=== PATIENT | male | born 1935 | race Caucasian/White ===

== ENCOUNTER 2017-06-17 10:26 | Inpatient (IN) | payer OTHER ==
[~2017-06-17] VITALS: Ht 167.6 cm; Wt 74.0 kg
[2017-06-17 10:28] VITALS: BP 188/86; PULSE 86; RESP 18; TEMP 98.3; O2SAT 96
--- NOTE | 2017-06-17 11:01 | PD ---
HPI Chief Complaint: Complaint Time Seen by Provider: 10:36 Travel History International Travel<30 days: Yes Contact w/Intl Traveler<30days: [place] Traveled to: [place] Traveled to known affect area: No History of Present Illness HPI 81yo M with PMH of enlarged prostate presents to the ED with c/o urinary retention since 4am yesterday. Said he has not been able to urinate. Denies any fever, chest pain, sob, n/v, abdominal pain, focal weakness or numbness or trauma. PFSH Past Medical History Diminished Hearing: No Genitourinary: Yes (ENLARGED PROSTATE) Past Surgical History Surgical History: No Previous Surgery Social History Alcohol Use: Yes (OCCASIONALLY) Tobacco Use: No Substance Use: No Allergies-Medications (Allergen,Severity, Reaction): Coded Allergies: No Known Allergies (Unverified , 06/17/17) Review of Systems Except as stated in HPI: all other systems reviewed are Neg Physical Exam Narrative GENERAL: 81yo M in mild distress. SKIN: Focused skin assessment warm/dry. HEAD: Atraumatic. Normocephalic. CARDIOVASCULAR: Regular rate and rhythm. No murmur appreciated. RESPIRATORY: No accessory muscle use. Clear to auscultation. Breath sounds equal bilaterally. GASTROINTESTINAL: Abdomen soft, distended. Mild suprapubic ttp. No rebound tenderness or guarding. BACK: No CVA tenderness bilaterally. MUSCULOSKELETAL: No obvious deformities. No clubbing. No cyanosis. No edema. NEUROLOGICAL: Awake and alert. No obvious cranial nerve deficits. Motor grossly within normal limits. Normal speech. PSYCHIATRIC: Appropriate mood and affect; insight and judgment normal. Data Data Last Documented VS Vital Signs Date Time Temp Pulse Resp B/P (MAP) Pulse Ox O2 Delivery O2 Flow Rate FiO2 06/17/17 10:28 98.3 86 18 188/86 (120) 96 Room Air Orders Orders Urinary Catheter Insert/Apply (06/17/17 10:45) Urinalysis - C+S If Indicated (06/17/17 10:45) Basic Metabolic Panel (Bmp) (06/17/17 10:45) Admit Order (Ed Use Only) (06/17/17 14:01) Labs Laboratory Tests Test 06/17/17 11:50 Urine Color LIGHT-YELLOW Urine Turbidity CLEAR Urine pH 6.5 Urine Specific [place] 1.009 Urine Protein NEG mg/dL Urine Glucose (UA) NEG mg/dL Urine Ketones NEG mg/dL Urine Occult Blood SMALL Urine Nitrite NEG Urine Bilirubin NEG Urine Urobilinogen LESS THAN 2.0 MG/DL Urine Leukocyte Esterase NEG Urine RBC 6 /hpf Urine WBC 3 /hpf Urine Bacteria RARE /hpf Microscopic Urinalysis Comment CULT NOT INDICATED Blood Urea Nitrogen 41 MG/DL Creatinine 4.50 MG/DL Random Glucose 112 MG/DL Calcium Level 9.3 MG/DL Sodium Level 136 MEQ/L Potassium Level 4.4 MEQ/L Chloride Level 100 MEQ/L Carbon Dioxide Level 26.8 MEQ/L Anion Gap 9 MEQ/L Estimat Glomerular Filtration Rate 13 ML/MIN MDM Medical Decision Making Medical Screen Exam Complete: Yes Emergency Medical Condition: Yes Differential Diagnosis KADE vs. UTI vs. urinary retention Narrative Course 81yo M with urinary retention since 4am yesterday. Pt states that he does have an enlarged prostate but this has not happened before. BUN/creatinine elevated at 41/4.50. Pt is from [place] and do not have prior to compare. He said that he had blood work in 12/2016 and his kidney functions were normal. UA showed 3 WBC, culture not indicated. Pt had suprapubic abdominal distension prior to cisneros insertion. Pt feels much better after cisneros insertion and abdomen is soft nontender now. Even though KADE likely secondary obstruction, will admit for full work up. Diagnosis Primary Impression: KADE (acute kidney injury) Admitting Information Admitting Physician Requests: Misty Panchal DO Jun 17, 2017 11:01
[2017-06-17 12:05] LABS: BACTERIA, URINE RARE /hpf; BLOOD, URINE SMALL (NEG); COMMENT (UR) CULT NOT INDICATED; CULTURE IF INDICATED CULT NOT INDICATED; GLUCOSE,URINE NEG (NEG); KETONE, URINE NEG (NEG); NITRITE,URINE NEG (NEG); PH, URINE 6.5 (5.0-8.5); URINE COLOR LIGHT-YELLOW (YELLW/STRAW)
[2017-06-17 12:20] LABS: BICARBONATE 26.8 MEQ/L (21.0-32.0); POTASSIUM 4.4 MEQ/L (3.5-5.1)
--- NOTE | 2017-06-17 13:53 | HHI.HP ---
HPI Service Family Medicine Primary Care Physician No Primary Care Physician Admission Diagnosis Diagnoses: International Travel<30 Days: Yes Contact w/Intl Traveler<30days: [place] Traveled to: [place] Known Affected Area: No History of Present Illness 81yo M with PMH of enlarged prostate (s/p high PSA and close follow-up with urologist in [place]) presents to the ED with c/o urinary retention since 4am yesterday. This has never happened to him before. He woke up at 4AM yesterday and a little dribbled out but then he couldn't urinate after. He continued to feel progressively more bloated and "full" until he felt he had to come into the ER today. He never felt any abdominal pain. He never saw any blood in his urine or had pain with urination. He has never needed any medications for his BPH. He denies fever/chills. Denies SOB/CP/dizzyness. Since arriving to the ED he had a cisneros placed and now he feels "great, back to normal". (Daphne Romo MD R2) Review of Systems Constitutional: DENIES: Diaphoretic episodes, Fatigue Endocrine: DENIES: Polydipsia, Polyuria Eyes: DENIES: Diplopia Ears, nose, mouth, throat: DENIES: Hearing loss, Vertigo Respiratory: DENIES: Snoring, Wheezing Cardiovascular: DENIES: Palpitations, Syncope Gastrointestinal: DENIES: Bloody stools, Constipation Genitourinary: DENIES: Testicular Pain, Testicular Swelling Musculoskeletal: DENIES: Muscle aches, Stiffness Hematologic/lymphatic: DENIES: Bruising Immunologic/allergic: DENIES: Eczema Neurologic: DENIES: Headache, Localized weakness Psychiatric: DENIES: Confusion, Mood changes (Daphne Romo MD R2) Past Family Social History Past Medical History chronic back pain - oseteoperosis and arthritis hypertension - on Valsartan 80, Hydrochlorothiazide 12.5 combo drug Past Surgical History cholecystectomy in the Reported Medications sandoz valsartan hct plaq 80-12.5 calcium & vit.D (Daphne Romo MD R2) Allergies: Coded Allergies: No Known Allergies (Unverified , 06/17/17) Family History non-contributory Social History denies smoking, denies alcohol, denies other drug use (Daphne Romo MD R2) Physical Exam Vital Signs Vital Signs Date Time Temp Pulse Resp B/P (MAP) Pulse Ox O2 Delivery O2 Flow Rate FiO2 06/17/17 10:28 98.3 86 18 188/86 (120) 96 Room Air Physical Exam GENERAL: This is a well-nourished, well-developed patient, in no apparent distress, very chatty and in good spirits SKIN: No rashes, ecchymoses or lesions. Cool and dry. HEAD: Atraumatic. Normocephalic. No temporal or scalp tenderness. EYES: Pupils equal round and reactive. Extraocular motions intact. No scleral icterus. No injection or drainage. ENT: Nose without bleeding, purulent drainage or septal hematoma. Throat without erythema, tonsillar hypertrophy or exudate. Uvula midline. Airway patent. NECK: Trachea midline. No JVD or lymphadenopathy. Supple, nontender, no meningeal signs. CARDIOVASCULAR: Regular rate and rhythm without murmurs, gallops, or rubs. RESPIRATORY: Clear to auscultation. Breath sounds equal bilaterally. No wheezes , rales, or rhonchi. GASTROINTESTINAL: Abdomen soft, non-tender in abdomen or suprapubic area, mildly distended abdomen. No hepato-splenomegaly, or palpable masses. No guarding. MUSCULOSKELETAL: Extremities without clubbing, cyanosis, or edema. No joint tenderness, effusion, or edema noted. No calf tenderness. Negative Homans sign bilaterally. NEUROLOGICAL: Awake and alert. Cranial nerves II through XII intact. Motor and sensory grossly within normal limits. Five out of 5 muscle strength in all muscle groups. Normal speech. Laboratory Laboratory Tests Test 06/17/17 11:50 Urine Color LIGHT-YELLOW Urine Turbidity CLEAR Urine pH 6.5 Urine Specific [place] 1.009 Urine Protein NEG Urine Glucose (UA) NEG Urine Ketones NEG Urine Occult Blood SMALL Urine Nitrite NEG Urine Bilirubin NEG Urine Urobilinogen LESS THAN 2.0 Urine Leukocyte Esterase NEG Urine RBC 6 Urine WBC 3 Urine Bacteria RARE Microscopic Urinalysis Comment CULT NOT INDICATED Blood Urea Nitrogen 41 Creatinine 4.50 Random Glucose 112 Calcium Level 9.3 Sodium Level 136 Potassium Level 4.4 Chloride Level 100 Carbon Dioxide Level 26.8 Anion Gap 9 Estimat Glomerular Filtration Rate 13 (Daphne Romo MD R2) Result Diagram: 06/17/17 1150 Caprini VTE Risk Assessment Caprini VTE Risk Assessment: No/Low Risk (score <= 1) Caprini Risk Assessment Model Point Value = 1 Point Value = 2 Point Value = 3 Point Value = 5 Age 41-60 Minor surgery BMI > 25 kg/m2 Swollen legs Varicose veins or History of unexplained or recurrent spontaneous Oral contraceptives or hormone replacement Sepsis (< 1 month) Serious lung disease, including pneumonia (< 1 month) Abnormal pulmonary function Acute myocardial infarction Congestive heart failure (< 1 month) History of inflammatory bowel disease Medical patient at bed rest Age 61-74 Arthroscopic surgery Major open surgery (> 45 min) Laparoscopic surgery (> 45 min) Malignancy Confined to bed (> 72 hours) Immobilizing plaster cast Central venous access Age >= 75 History of VTE Family history of VTE Factor V Leiden Prothrombin [id number] Lupus anticoagulant Anticardiolipin antibodies Elevated serum homocysteine Heparin-induced thrombocytopenia Other congenital or acquired thrombophilia Stroke (< 1 month) Elective arthroplasty Hip, pelvis, or leg fracture Acute spinal cord injury (< 1 month) Prophylaxis Regimen Total Risk Factor Score Risk Level Prophylaxis Regimen 0-1 Low Early ambulation 2 Moderate Order ONE of the following: *Sequential Compression Device (SCD) *Heparin 5000 units SQ BID 3-4 Higher Order ONE of the following medications: *Heparin 5000 units SQ TID *Enoxaparin/Lovenox 40 mg SQ daily (WT < 150 kg, CrCl > 30 mL/min) *Enoxaparin/Lovenox 30 mg SQ daily (WT < 150 kg, CrCl > 10-29 mL/min) *Enoxaparin/Lovenox 30 mg SQ BID (WT < 150 kg, CrCl > 30 mL/min) AND/OR *Sequential Compression Device (SCD) 5 or more Highest Order ONE of the following medications: *Heparin 5000 units SQ TID (Preferred with Epidurals) *Enoxaparin/Lovenox 40 mg SQ daily (WT < 150 kg, CrCl > 30 mL/min) *Enoxaparin/Lovenox 30 mg SQ daily (WT < 150 kg, CrCl > 10-29 mL/min) *Enoxaparin/Lovenox 30 mg SQ BID (WT < 150 kg, CrCl > 30 mL/min) AND *Sequential Compression Device (SCD) (Daphne Romo MD R2) Assessment and Plan Assessment and Plan 81 y/o M with hx of BPH, presents with post-obstructive KADE. Code Status Full Code Discussed Condition With (Daphne Romo MD R2) Attending Attestation THIS CASE WAS DISCUSSED WITH THE RESIDENT PHYSICIAN. I HAVE REVIEWED THE RECORD AND AGREE WITH THE ABOVE NOTE AND PLAN OF CARE WAS DISCUSSED. I HAVE AUTHORIZED THE ORDER FOR PLACEMENT IN OUT-PATIENT OBSERVATION STATUS. (Peewee Davis MD) Problem List: (1) KADE (acute kidney injury) ICD Codes: N17.9 - Acute kidney failure, unspecified Status: Acute Plan: BUN/Cr: 41/4.50 Due to post-obstructive uropathy f/u BMP in AM Per pt baseline Creat in December was WNL (2) BPH w urinary obs/LUTS ICD Codes: N40.1 - Benign prostatic hyperplasia with lower urinary tract symptoms; N13.8 - Other obstructive and reflux uropathy Status: Acute Plan: Hx of BPH with no sx, no medical management Cisneros placed: 2L out Encourage large PO fluid intake d/c cisneros in AM for void trial f/u BMP in AM consult urology: likely will need to d/c with cisneros Start Tamsulosin .4mg PO daily (can increase as outpatient in 2-4wks) (3) Hypertension ICD Codes: I10 - Essential (primary) hypertension Status: Chronic Plan: Continue home medication : valsartan + hydrochlorothiazide (4) fen/ppx Status: Chronic Plan: fluids: heavy PO fluid intake electrolytes: WNL, f/u BMP in AM nutrition: regular diet dvtppx: hold lovenox for creatinine clearance (Daphne Romo MD R2) Physician Certification 2 Midnight Certification Type: Admission for Inpatient Services Order for Inpatient Services The services are ordered in accordance with Medicare regulations or non- Medicare payer requirements, as applicable. In the case of services not specified as inpatient-only, they are appropriately provided as inpatient services in accordance with the 2-midnight benchmark. Estimated LOS (days): 2 days is the estimated time the patient will need to remain in the hospital, assuming treatment plan goals are met and no additional complications. Post-Hospital Plan: Home (Daphne Romo MD R2) Problem Qualifiers (1) Hypertension: Qualified Codes: I10 - Essential (primary) hypertension Daphne Romo MD R2 Jun 17, 2017 13:53 Peewee Davis MD Jun 17, 2017 15:27
[2017-06-17] MEDS ORDERED: NALOXONE HCL 0.4 MG/ML AMP IV PUSH PRN (14:15)
[2017-06-17] MEDS ORDERED: SODIUM CHLORIDE 0.9% FLUSH 10 ML FLUSH IV FLUSH PRN (14:15)
[2017-06-17] MEDS ORDERED: SENNOSIDES 8.6 MG TAB PO PRN (14:15)
[2017-06-17] MEDS ORDERED: ONDANSETRON HCL 4 MG/2 ML VIAL IVP PRN (14:15)
[2017-06-17] MEDS ORDERED: ACETAMINOPHEN 325 MG TAB PO PRN (14:15)
[2017-06-17] MEDS ORDERED: TEMAZEPAM 15 MG CAP PO PRN (14:15)
[2017-06-17] MEDS ORDERED: BISACODYL 10 MG SUPP RECTAL PRN (14:15)
[2017-06-17] MEDS ORDERED: ENOXAPARIN SODIUM 40 MG/0.4 ML SYRINGE SQ SCH (14:15)
[2017-06-17] MEDS ORDERED: MAGNESIUM HYDROXIDE SUSP 30 ML CUP PO PRN (14:15)
[2017-06-17] MEDS ORDERED: LACTULOSE SYRUP 20 GM/30 ML CUP PO PRN (14:15)
[2017-06-17] MEDS ORDERED: TAMSULOSIN HCL 0.4 MG CAP PO ONE (15:00)
[2017-06-17 15:18] VITALS: BP 139/71; PULSE 79; RESP 16; O2SAT 98
--- NOTE | 2017-06-17 15:27 | HHI.HP ---
HPI Service Family Medicine Primary Care Physician No Primary Care Physician Admission Diagnosis Diagnoses: (1) KADE (acute kidney injury) (2) BPH w urinary obs/LUTS (3) Hypertension (4) fen/ppx International Travel<30 Days: Yes Contact w/Intl Traveler<30days: [place] Traveled to: [place] Known Affected Area: No History of Present Illness 81-year-old male presenting to the emergency department with abdominal pain and urinary retention. He is from [place] and is currently an [place] on vacation until 06/27/17 and is noted to have urinary retention with his last void prior to arrival in the emergency department at 4 AM the day prior to arrival. He states with his last urination, he noticed a very weak stream with "dribbling" and had inability to urinate after this. He continued to feel progressively more bloated and full in his lower abdomen until he came to the ER today with lower abdominal pain and lower back pain. He denies fevers or chills, denies any nausea or vomiting, denies any hematuria or melena or hematochezia. Upon admission to the emergency department, a Valdez catheter was placed and 1600 mL of clear urine was immediately drained. He has a history of BPH that he states has been worked up significantly in [place]. He states that he has had a prostate ultrasound and biopsy set of all returned normal. He also states that he has had a prostate MRI that did not show any evidence of prostate cancer. His primary doctor in [place] has recommended he be on a prostate medication such as Flomax, however he has refused this due to the fact that he has been able to urinate on a relatively normal basis without pain or issues prior to this episode. Review of Systems Constitutional: DENIES: Fever, Chills, Dizziness Endocrine: DENIES: Polyuria Respiratory: DENIES: Apneas, Cough Cardiovascular: DENIES: Chest pain, Palpitations, Syncope, Dyspnea on Exertion Gastrointestinal: COMPLAINS OF: Abdominal pain, DENIES: Black stools, Bloody stools, Constipation, Diarrhea, Nausea, Vomiting, Difficulty Swallowing Genitourinary: DENIES: Urinary frequency, Urinary incontinence, Urgency, Hematuria, Dysuria, Nocturia Musculoskeletal: DENIES: Joint pain Past Family Social History Past Medical History chronic back pain - oseteoperosis and arthritis hypertension - on Valsartan 80, Hydrochlorothiazide 12.5 combo drug Past Surgical History cholecystectomy in the 1990s Allergies: Coded Allergies: No Known Allergies (Unverified , 06/17/17) Family History non-contributory Social History denies smoking, denies alcohol, denies other drug use Physical Exam Vital Signs Vital Signs Date Time Temp Pulse Resp B/P (MAP) Pulse Ox O2 Delivery O2 Flow Rate FiO2 06/17/17 10:28 98.3 86 18 188/86 (120) 96 Room Air Physical Exam GENERAL: This is a well-nourished, well-developed patient, in no obvious distress SKIN: No rashes, ecchymoses or lesions. Cool and dry. NECK: Trachea midline. No JVD or lymphadenopathy. Supple, nontender, no meningeal signs. CARDIOVASCULAR: Regular rate and rhythm without murmurs, gallops, or rubs. RESPIRATORY: Clear to auscultation. Breath sounds equal bilaterally. No wheezes , rales, or rhonchi. GASTROINTESTINAL: Abdomen soft, nontender to palpation. No suprapubic pain or tenderness. : Valdez catheter in place with blood-tinged urine MUSCULOSKELETAL: Extremities without clubbing, cyanosis, or edema. NEUROLOGICAL: Awake and alert. Laboratory Laboratory Tests Test 06/17/17 11:50 Urine Color LIGHT-YELLOW Urine Turbidity CLEAR Urine pH 6.5 Urine Specific [place] 1.009 Urine Protein NEG Urine Glucose (UA) NEG Urine Ketones NEG Urine Occult Blood SMALL Urine Nitrite NEG Urine Bilirubin NEG Urine Urobilinogen LESS THAN 2.0 Urine Leukocyte Esterase NEG Urine RBC 6 Urine WBC 3 Urine Bacteria RARE Microscopic Urinalysis Comment CULT NOT INDICATED Blood Urea Nitrogen 41 Creatinine 4.50 Random Glucose 112 Calcium Level 9.3 Sodium Level 136 Potassium Level 4.4 Chloride Level 100 Carbon Dioxide Level 26.8 Anion Gap 9 Estimat Glomerular Filtration Rate 13 Result Diagram: 06/17/17 1150 Caprini VTE Risk Assessment Caprini VTE Risk Assessment: No/Low Risk (score <= 1) Caprini Risk Assessment Model Point Value = 1 Point Value = 2 Point Value = 3 Point Value = 5 Age 41-60 Minor surgery BMI > 25 kg/m2 Swollen legs Varicose veins or History of unexplained or recurrent spontaneous Oral contraceptives or hormone replacement Sepsis (< 1 month) Serious lung disease, including pneumonia (< 1 month) Abnormal pulmonary function Acute myocardial infarction Congestive heart failure (< 1 month) History of inflammatory bowel disease Medical patient at bed rest Age 61-74 Arthroscopic surgery Major open surgery (> 45 min) Laparoscopic surgery (> 45 min) Malignancy Confined to bed (> 72 hours) Immobilizing plaster cast Central venous access Age >= 75 History of VTE Family history of VTE Factor V Leiden Prothrombin [id number] Lupus anticoagulant Anticardiolipin antibodies Elevated serum homocysteine Heparin-induced thrombocytopenia Other congenital or acquired thrombophilia Stroke (< 1 month) Elective arthroplasty Hip, pelvis, or leg fracture Acute spinal cord injury (< 1 month) Prophylaxis Regimen Total Risk Factor Score Risk Level Prophylaxis Regimen 0-1 Low Early ambulation 2 Moderate Order ONE of the following: *Sequential Compression Device (SCD) *Heparin 5000 units SQ BID 3-4 Higher Order ONE of the following medications: *Heparin 5000 units SQ TID *Enoxaparin/Lovenox 40 mg SQ daily (WT < 150 kg, CrCl > 30 mL/min) *Enoxaparin/Lovenox 30 mg SQ daily (WT < 150 kg, CrCl > 10-29 mL/min) *Enoxaparin/Lovenox 30 mg SQ BID (WT < 150 kg, CrCl > 30 mL/min) AND/OR *Sequential Compression Device (SCD) 5 or more Highest Order ONE of the following medications: *Heparin 5000 units SQ TID (Preferred with Epidurals) *Enoxaparin/Lovenox 40 mg SQ daily (WT < 150 kg, CrCl > 30 mL/min) *Enoxaparin/Lovenox 30 mg SQ daily (WT < 150 kg, CrCl > 10-29 mL/min) *Enoxaparin/Lovenox 30 mg SQ BID (WT < 150 kg, CrCl > 30 mL/min) AND *Sequential Compression Device (SCD) Assessment and Plan Assessment and Plan 81 y/o M with hx of BPH, presents with post-obstructive KADE. Problem List: (1) KADE (acute kidney injury) ICD Codes: N17.9 - Acute kidney failure, unspecified Status: Acute Plan: Likely related to obstructive uropathy from an enlarged prostate BUN/Cr: 41/4.50 - unknown baseline the patient states that it was previously normal Valdez catheter in place for drainage Started on tamsulosin 0.4 mg daily f/u BMP in AM Obtain renal ultrasound Urology consult placed (2) BPH w urinary obs/LUTS ICD Codes: N40.1 - Benign prostatic hyperplasia with lower urinary tract symptoms; N13.8 - Other obstructive and reflux uropathy Status: Acute Plan: Hx of BPH not on medications Valdez placed: 1600ml out - Continue Valdez catheter and monitor I's/O's - Urology consult placed Started on tamsulosin 0.4 mg by mouth daily f/u BMP in AM (3) Hypertension ICD Codes: I10 - Essential (primary) hypertension Status: Chronic Plan: Continue home medication : valsartan + hydrochlorothiazide (4) fen/ppx Status: Chronic Plan: fluids: heavy PO fluid intake electrolytes: WNL, f/u BMP in AM nutrition: regular diet dvtppx: hold lovenox for creatinine clearance Problem Qualifiers (1) Hypertension: Qualified Codes: I10 - Essential (primary) hypertension Peewee Davis MD Jun 17, 2017 15:27
[2017-06-17 15:30] VITALS: O2SAT 98
[2017-06-17] MEDS: TAMSULOSIN HCL 0.4 MG CAP PO SCH (16:07)
[2017-06-17 16:09] VITALS: BP 145/69; PULSE 79; RESP 16; TEMP 97.7; O2SAT 97
--- NOTE | 2017-06-17 16:19 | RADRPT ---
EXAM DATE/TIME: 06/17/2017 15:52 [facility] COMPARISON: No previous studies available for comparison. INDICATIONS : Flank pain. MEDICAL HISTORY : Benign prostatic hyperplasia, (BPH) Flank pain. Hematuria. SURGICAL HISTORY : None. ENCOUNTER: Initial ACUITY: 2 days PAIN SCORE: 3/10 LOCATION: Bilateral flank MEASUREMENTS: RIGHT KIDNEY: 10.9 x 6.1 x 6.2 cm LEFT KIDNEY: 10.9 x 5.2 x 5.2 cm FINDINGS: Ultrasound of the kidneys demonstrate normal size shape and echogenicity. No hydronephrosis or mass l esions are identified. A Valdez catheter is present within the bladder which does not allow for evalua tion. CONCLUSION: 1. Unremarkable ultrasound examination of the kidneys. Marshal Clark MD on June 17, 2017 at 16:18 Board Certified Radiologist. This report was verified electronically.
[2017-06-17 20:03] VITALS: BP 119/56; PULSE 83; RESP 18; TEMP 99.1; O2SAT 94
[2017-06-17] MEDS: DOCUSATE SODIUM 50 MG/SENNA 8.6 MG TAB PO SCH (20:47)
[2017-06-17] MEDS: SODIUM CHLORIDE 0.9% FLUSH 10 ML FLUSH IV FLUSH SCH (20:47)
[2017-06-17 23:58] VITALS: BP 114/59; PULSE 77; RESP 19; TEMP 98.9; O2SAT 97
[2017-06-18 03:23] VITALS: BP 103/55; PULSE 84; RESP 17; TEMP 98.6; O2SAT 97
[2017-06-18 06:05] LABS: AUTOMATED NEUTROPHIL # 6.1 TH/MM3 (1.8-7.7); BASOPHIL % 0.3 % (0.0-2.0); EOSINOPHIL # 0.1 TH/MM3 (0-0.4); EOSINOPHIL % 0.6 % (0.0-4.0); HEMATOCRIT 45.3 % (39.0-51.0); HEMO FLAGS DIFF FINAL; LYMPH % 19.1 % (9.0-44.0); LYMPHOCYTE # 1.6 TH/MM3 (1.0-4.8); MEAN CELL VOLUME 88.9 FL (80.0-100.0); MEAN CORPUSCULAR HEMOGLOBIN 31.2 PG (27.0-34.0); MONO % 9.2 % (0.0-8.0); NEUT % 70.8 % (16.0-70.0); PLATELET COUNT 120 TH/MM3 (150-450); RED CELL DISTRIBUTION WIDTH 12.9 % (11.6-17.2); WHITE BLOOD COUNT 8.6 TH/MM3 (4.0-11.0)
[2017-06-18 06:14] LABS: POTASSIUM 4.2 MEQ/L (3.5-5.1)
[2017-06-18 07:29] VITALS: BP 122/63; PULSE 86; RESP 20; TEMP 97.9; O2SAT 94
--- NOTE | 2017-06-18 08:15 | MB ---
cc: HAMMAD SAAVEDRA MD DATE OF CONSULTATION: 06/18/2017 REASON FOR CONSULTATION 1. Urinary retention with acute renal failure. 2. History of BPH with LUTS. 3. History of elevated PSA. HISTORY OF PRESENT ILLNESS The patient is an 81-year-old male with history of BPH with lower urinary tract symptoms, who presented to the emergency department yesterday morning with lower abdominal pain and inability to urinate. Over the past couple of days he has noticed a very weak stream and dribbling to the point where he felt more bloated and uncomfortable in his lower abdomen. He presented to the ER for these initial complaints. In the ER he had a Valdez catheter placed for over 600 mL of clear urine and he immediately felt better. He is currently on vacation from [place] where he is followed by an urologist up there for his BPH and history of elevated PSA. He has had a prostate biopsy in the past which was normal. He also had a recent prostate debridement that did not show any evidence of prostate cancer other than an enlarged prostate. His urologist in [place] recommended him starting Flomax for his lower urinary tract symptoms but the patient refused to take it as he felt like he was urinating without any difficulties. However, in discussion with the patient he has been getting up 3-4 times a night and urinating every 1-2 hours during the day, but he felt like he was completely emptying his bladder. He denies hematuria, dysuria, history urinary tract infections or history of kidney stones. Currently he denies any fevers, chills, nausea, vomiting, flank pain. REVIEW OF SYSTEMS See HPI. Otherwise all systems reviewed are negative. PAST MEDICAL HISTORY 1. BPH, elevated PSA. 2. Hypertension. 3. Osteoarthritis. PAST SURGICAL HISTORY Cholecystectomy. ALLERGIES No known drug allergies. FAMILY HISTORY Denies urolithiasis or malignancy. SOCIAL HISTORY He denies smoking, alcohol or illicit drugs. Lives in [place]. MEDICATIONS Current medications include: 1. Hydrochlorothiazide 12.5 mg daily. 2. Valsartan 80 mg daily. 3. Flomax 0.4 mg daily. PHYSICAL EXAMINATION VITAL SIGNS: Temperature 97.9, pulse 86, respiratory rate 20, blood pressure 120/60. Satting 95% on room air. GENERAL: An alert and oriented x3, in no apparent distress, pleasant and cooperative gentleman who appears his stated age. HEAD: Normocephalic, atraumatic. EYES: No scleral icterus. Extraocular muscles intact. NECK: Supple. Trachea is midline. No JVD. SKIN: No ulcers or rashes. Mucous membranes are pink and moist. LUNGS: Non-labored respirations. No wheezes, rales or rhonchi. HEART: Regular rhythm. No murmurs, gallops or rubs. ABDOMEN: Soft, nontender, nondistended. Positive bowel sounds. GENITOURINARY: No CVA tenderness bilaterally. Penis is circumcised. Urethral meatus is normal. Testes are descended bilaterally, normal size and consistency without mass. RECTAL: Not indicated at this time. EXTREMITIES: Nontender. No clubbing, cyanosis or edema. PSYCH: Normal affect. NEUROLOGIC: Cranial nerves II through XII intact. Strength 5/5 in all four extremities. LABORATORY White count 8.6, hemoglobin 15.9, hematocrit 45.3, platelet count 120. Sodium 140, potassium 4.2, chloride 103, bicarb 31.0, BUN 38, creatinine 2.4 down from 4.5. Urine shows small blood. IMAGING Renal ultrasound images were reviewed. Agree with the radiologist's report. The patient has a normal-appearing ultrasound with no evidence of hydronephrosis with a completely decompression bladder with a Valdez catheter present. ASSESSMENT The patient is an 81-year-old male with a history of BPH and severe lower urinary tract symptoms, who presents with lower abdominal pain and was found to be in acute urinary retention as well as acute renal failure with a creatinine of 4.5. PLAN 1. Continue the Valdez catheter for a minimum of one week then can void trial as an outpatient; however, in most cases the patient will likely need a TURP in the future due to the presence of his obstructive uropathy causing acute renal failure. 2. Continue Flomax 0.4 mg daily. 3. From the urology standpoint it is okay to be discharged home. He can follow-up with his urologist in [place] when he returns on 06/27/2017. Thank you for this consult. Please call with any questions. Hammad Saavedra MD EMF/BT /7:42 AM /7:49 AM
[2017-06-18] MEDS ORDERED: VALSARTAN 80 MG TAB PO SCH (09:00)
[2017-06-18] MEDS ORDERED: HYDROCHLOROTHIAZIDE 12.5 MG CAP PO SCH (09:00)
[2017-06-18] MEDS: TAMSULOSIN HCL 0.4 MG CAP PO SCH (09:06)
[2017-06-18] MEDS: DOCUSATE SODIUM 50 MG/SENNA 8.6 MG TAB PO SCH (09:07)
[2017-06-18] MEDS: SODIUM CHLORIDE 0.9% FLUSH 10 ML FLUSH IV FLUSH SCH (09:08)
--- NOTE | 2017-06-18 09:44 | HHI.FPPN ---
Subjective Remarks Patient seen and examined this morning. No acute events overnight. Patient reports that he feels significantly improved this morning, abdominal and back discomfort has resolved. He reports feeling back to his baseline. He denies chest pain, shortness of breath. He has no additional acute concerns and expresses the desire to go home today. He will be following up with his urologist in [place] after discharge. (Carile Chen MD R3) Objective Vitals Vital Signs Date Time Temp Pulse Resp B/P (MAP) Pulse Ox O2 Delivery O2 Flow Rate FiO2 06/18/17 07:29 97.9 86 20 122/63 (82) 94 06/18/17 05:19 21 06/18/17 03:23 98.6 84 17 103/55 (71) 97 06/17/17 23:58 98.9 77 19 114/59 (77) 97 06/17/17 20:03 99.1 83 18 119/56 (77) 94 06/17/17 16:09 97.7 79 16 145/69 (94) 97 06/17/17 15:31 06/17/17 15:30 98 21 06/17/17 15:18 79 16 139/71 (93) 98 Room Air 06/17/17 10:28 98.3 86 18 188/86 (120) 96 Room Air I/O 06/17/17 06/17/17 06/17/17 06/18/17 06/18/17 06/18/17 07:00 15:00 23:00 07:00 15:00 23:00 Output Total 2000 ml 1800 ml Balance -2000 ml -1800 ml Output Urine Total 2000 ml 1800 ml (Carlie Chen MD R3) Result Diagram: 06/18/1730 06/18/17 0530 Objective Remarks GENERAL: This is a well-nourished, well-developed patient, in no acute distress SKIN: No rashes, ecchymoses or lesions. Cool and dry. HEAD: Atraumatic. Normocephalic. EYES: Extraocular motions intact. No scleral icterus. No injection or drainage. ENT: Nose without bleeding, purulent drainage or septal hematoma. Airway patent. NECK: Trachea midline. No JVD or lymphadenopathy. CARDIOVASCULAR: Regular rate and rhythm without murmurs, gallops, or rubs. RESPIRATORY: Clear to auscultation. Breath sounds equal bilaterally. No wheezes , rales, or rhonchi. GASTROINTESTINAL: Abdomen soft, non-tender. No hepato-splenomegaly, or palpable masses. No guarding. MUSCULOSKELETAL: Extremities without clubbing, cyanosis, or edema. NEUROLOGICAL: Awake and alert. Cranial nerves II through XII intact. Motor and sensory grossly within normal limits. Normal speech. (Carlie Chen MD R3) A/P Assessment and Plan 81 y/o M with hx of BPH, presents with post-obstructive KADE. Discharge Planning Patient has been cleared by urology. Anticipate discharge later today. (Carlie Chen MD R3) Attending Attestation Patient examined and case discussed with resident physicians I have read the above note and agree with the assessment/plan as discussed with me I was involved in all medical decision making for this patient Peewee Davis M.D. (Peewee Davis MD) Problem List: (1) BPH w urinary obs/LUTS ICD Codes: N40.1 - Benign prostatic hyperplasia with lower urinary tract symptoms; N13.8 - Other obstructive and reflux uropathy Status: Acute Plan: Hx of BPH not on medications Valdez placed: Total of 3800mls out since admission - Continue Valdez catheter and monitor I's/O's - Urology consult placed, appreciate recommendations Valdez catheter to be continued for a 1 week Patient to follow-up with urology as an outpatient Continue tamsulosin 0.4 mg by mouth daily (2) KADE (acute kidney injury) ICD Codes: N17.9 - Acute kidney failure, unspecified Status: Acute Plan: Improved Likely related to obstructive uropathy from an enlarged prostate BUN/Cr: 41/4.50 - unknown baseline the patient states that it was previously normal This morning creatinine decreased to 2.4 Imaging: Renal ultrasound within normal limits (3) Hypertension ICD Codes: I10 - Essential (primary) hypertension Status: Chronic Plan: Continue home medication : valsartan + hydrochlorothiazide (4) fen/ppx Status: Chronic Plan: fluids: Encourage by mouth intake, no IV fluids electrolytes: Within normal limits nutrition: regular diet dvtppx: CUCA hose, early ambulation (Carlie Chen MD R3) Problem Qualifiers (1) Hypertension: Qualified Codes: I10 - Essential (primary) hypertension Carlie Chen MD R3 Jun 18, 2017 09:44 Peewee Davis MD Jun 18, 2017 16:24
[2017-06-18 11:22] VITALS: BP 95/94; PULSE 93; RESP 20; TEMP 98.7; O2SAT 95
[2017-06-18] MEDS ORDERED: TAMS5CAP PO (12:28)
[2017-06-18] MEDS ORDERED: VALS80TA2 PO (12:28)
--- NOTE | 2017-06-18 12:29 | HHI.DCPOC ---
Discharge Care Plan Diagnosis: (1) KADE (acute kidney injury) (2) Hypertension (3) BPH w urinary obs/LUTS Goals to Promote Your Health * To prevent worsening of your condition and complications * To maintain your health at the optimal level Directions to Meet Your Goals Take your medications as prescribed Follow your dietary instruction Follow activity as directed Keep your appointments as scheduled Take your immunizations and boosters as scheduled If your symptoms worsen call your PCP, if no PCP go to Urgent Care Center or Emergency Room Smoking is Dangerous to Your Health. Avoid second hand smoke Call the 24-hour hour crisis hotline for domestic abuse at Carlie Chen MD R3 Jun 18, 2017 12:29
== END 2017-06-18 13:52 | disposition home or self-care (01) | DRG 684 ==
LOC: NEPD 10:26 → NEDA 14:02 → OBSVTOIN 14:17 → NEPFCDU 15:32
PROVIDERS: ADMIT Family Medicine; ATTEND Family Medicine
PROC: 0T9B70Z Drainage of Bladder with Drainage Device, Via Natural or Artificial Opening (ICD-10-PCS; principal; 2017-06-17)
DX: N17.9 Acute kidney failure, unspecified (principal); I10 Essential (primary) hypertension; N40.1 Benign prostatic hyperplasia with lower urinary tract symptoms; R33.8 Other retention of urine; R39.12 Poor urinary stream; M54.9 Dorsalgia, unspecified; G89.29 Other chronic pain; M81.0 Age-related osteoporosis without current pathological fracture; R97.20 Elevated prostate specific antigen [PSA]; M19.90 Unspecified osteoarthritis, unspecified site; Z79.899 Other long term (current) drug therapy
CPT/HCPCS: 51702; 76775; 80048; 81001; 85025